=== PATIENT | male | born 1950 | race Two or more races ===

== ENCOUNTER 2020-12-04 10:15 | Inpatient (IN) | payer OTHER ==
[~2020-12-04] VITALS: Ht 172.7 cm; Wt 68.0 kg
[2020-12-04] MEDS ORDERED: AMLODIP PO (12:46)
[2020-12-04] MEDS ORDERED: TERAZOSIN HCL5 MG PO (12:47)
[2020-12-04] MEDS ORDERED: ZESTRIL40 M1 PO (12:47)
[2020-12-04] MEDS ORDERED: FINASTERIDE5 MG PO (12:47)
[2020-12-07] MEDS ORDERED: AMLODIPINE BESY10 MG (15:52)
[2020-12-07] MEDS ORDERED: ATORVASTATIN CA40 MG (15:52)
[2020-12-12] MEDS ORDERED: HYOSCYAMINE0.125 M1 SL (14:10)
[2020-12-12] MEDS ORDERED: TAMS0.4C PO (14:11)
[2020-12-12] MEDS ORDERED: OXYC1TAB9 PO (14:11)
[2020-12-29] MEDS ORDERED: MIRALAX17 GM PO (16:10)
[2021-01-04] MEDS ORDERED: DICLOFENAC SODI75 MG PO (08:44)
== END 2020-12-12 14:36 | disposition home or self-care (01) | DRG 331 ==
LOC: SURG 12-07 05:20 → O/R 12-07 05:20 → SURH 12-07 10:15 → SURG 12-07 11:07
PROVIDERS: ADMIT Surgery; ATTEND Surgery
PROC: 07BB4ZZ Excision of Mesenteric Lymphatic, Percutaneous Endoscopic Approach (ICD-10-PCS; 2020-12-07)
PROC: 0DTF4ZZ Resection of Right Large Intestine, Percutaneous Endoscopic Approach (ICD-10-PCS; principal; 2020-12-07 06:28)
DX: C18.0 Malignant neoplasm of cecum (principal); R33.9 Retention of urine, unspecified; R53.81 Other malaise; H91.90 Unspecified hearing loss, unspecified ear; F17.200 Nicotine dependence, unspecified, uncomplicated

== ENCOUNTER 2021-03-20 10:29 | Emergency (ER) | payer OTHER ==
[~2021-03-20] VITALS: Ht 167.6 cm; Wt 63.0 kg
[~2021-03-20 10:29] MED LIST: AMLODIP PO; AMLODIPINE BESY10 MG; ATORVASTATIN CA40 MG; DICLOFENAC SODI75 MG PO; FINASTERIDE5 MG PO; HYOSCYAMINE0.125 M1 SL; MIRALAX17 GM PO; OXYC1TAB9 PO; TAMS0.4C PO; TERAZOSIN HCL5 MG PO; ZESTRIL40 M1 PO
[2021-03-21] MEDS ORDERED: CIPRO500 MG PO (06:41)
== END 2021-03-21 07:18 | disposition home or self-care (01) ==
LOC: ER 10:29
DX: K59.09 Other constipation (principal); R10.84 Generalized abdominal pain

== ENCOUNTER 2021-07-10 21:49 | Emergency (ER) | payer OTHER ==
[~2021-07-10] VITALS: Ht 172.7 cm; Wt 60.3 kg
[~2021-07-10 21:49] MED LIST changes: +CIPRO500 MG PO
[2021-07-10] MEDS ORDERED: ZOFRAN8 MG PO (22:00)
[2021-07-10] MEDS ORDERED: LEUCOVORIN CALC15 MG PO (22:02)
[2021-07-10] MEDS ORDERED: MVASI25 MG/1 ML IV (22:02)
== END 2021-07-10 22:30 | disposition home or self-care (01) ==
LOC: ER 21:49
DX: N40.1 Benign prostatic hyperplasia with lower urinary tract symptoms (principal); R33.8 Other retention of urine

== ENCOUNTER 2022-08-02 12:51 | Emergency (ER) | payer OTHER ==
[~2022-08-02] VITALS: Ht 172.7 cm; Wt 61.2 kg
[~2022-08-02 12:51] MED LIST changes: +LEUCOVORIN CALC15 MG PO; +MVASI25 MG/1 ML IV; +ZOFRAN8 MG PO
[2022-08-02] MEDS ORDERED: PEPCID AC20 MG (13:58)
[2022-08-02] MEDS ORDERED: CIPRO500 MG PO (19:43)
== END 2022-08-02 19:58 | disposition home or self-care (01) ==
LOC: ER 12:51
DX: N39.0 Urinary tract infection, site not specified (principal)

== ENCOUNTER 2023-09-29 07:00 | Inpatient (IN) | payer OTHER ==
[~2023-09-29] VITALS: Ht 172.7 cm; Wt 47.6 kg
[~2023-09-29 07:00] MED LIST changes: +PEPCID AC20 MG
[2023-09-29 08:37] LABS: HEMOGLOBIN 13.4 g/dL (13-16.00); MEAN CELL VOLUME 90.6 fL (80.0-100.00); MEAN CORPUSCULAR HEMOGLOBIN 29.7 pg (27.00-32.0); MEAN CORPUSCULAR HGB CONC 32.7 g/dl (32.0-36.0); PLATELET COUNT 237 K/uL (150-450); RED BLOOD COUNT 4.53 M/uL (4.00-6.00)
[2023-09-29] MEDS ORDERED: OMEPRAZOLE40 MG PO (08:40)
[2023-09-29 09:00] LABS: CALCIUM 10.8 mg/dL (8.5-10.1); CREATININE SERUM 0.51 mg/dL (0.70-1.30); GFR 158.87; POTASSIUM 4.96 mEq/L (3.5-5.1)
[2023-09-29 09:02] LABS: INR 0.99; PARTIAL THROMBOPLASTIN TIME 31.4 SECONDS (22.0-34.0); PROTHROMBIN TIME 10.4 SECONDS (9.0-11.5)
[2023-09-29 09:34] LABS: URINE APPEARANCE Turbid; URINE BILIRRUBIN Negative (NEGATIVE); URINE BLOOD Trace; URINE COLOR Yellow; URINE GLUCOSE Negative (NEGATIVE); URINE LEUKOCYTE Large; URINE NITRATE Positive; URINE PROTEIN 30 (NEGATIVE); URINE UROBILINOGEN 0.2 E.U./dl
[2023-09-29 09:39] LABS: URINE EPITHELIAL CELLS 87.2 uL (0.0-38.8); URINE RBC 15.7 uL (0.0-20.8); URINE WBC 1897.1 uL (0.0-23.2)
[2023-09-29 09:56] LABS: URINE BACTERIA > 9821.2 uL (0.0-1933)
[2023-10-03] MEDS ORDERED: LISINOPRIL20 MG (07:49)
[2023-10-03] MEDS ORDERED: PANTOPRAZOLE SO40 MG (07:49)
[2023-10-03] MEDS ORDERED: AMLODIPINE BESYL5 MG (07:52)
[2023-10-03] MEDS ORDERED: TAMSULOSIN HCL0.4 MG (07:52)
[2023-10-03] MEDS ORDERED: FINASTERIDE5 MG (07:53)
[2023-10-04 08:43] LABS: CALCIUM 10.1 mg/dL (8.5-10.1); CREATININE SERUM 0.51 mg/dL (0.70-1.30); GFR 158.87; POTASSIUM 4.95 mEq/L (3.5-5.1)
[2023-10-04 08:59] LABS: HEMATOCRIT 40.3 % (39.0-48.0); HEMOGLOBIN 13.4 g/dL (13-16.00); MEAN CELL VOLUME 90.9 fL (80.0-100.00); MEAN CORPUSCULAR HEMOGLOBIN 30.3 pg (27.00-32.0); MEAN CORPUSCULAR HGB CONC 33.4 g/dl (32.0-36.0); PLATELET COUNT 189 K/uL (150-450); RED BLOOD COUNT 4.44 M/uL (4.00-6.00); RED CELL DISTRIBUTION WIDTH 18.8 % (11.5-14.5)
== END 2023-10-04 14:09 | disposition home or self-care (01) | DRG 713 ==
LOC: SURH 10-03 06:00 → O/R 10-03 06:00 → SURG 10-03 07:00 → SURH 10-03 10:46
PROVIDERS: ADMIT Urology; ATTEND Urology
PROC: 0VT08ZZ Resection of Prostate, Via Natural or Artificial Opening Endoscopic (ICD-10-PCS; principal; 2023-10-03 09:00)
DX: N40.1 Benign prostatic hyperplasia with lower urinary tract symptoms (principal); N39.0 Urinary tract infection, site not specified; R33.8 Other retention of urine; Z20.822 Contact with and (suspected) exposure to COVID-19